=== PATIENT | male | born 1990 | race Two or more races ===

== ENCOUNTER 2021-05-01 21:15 | Emergency (ER) | payer OTHER ==
[~2021-05-01] VITALS: Ht 170.2 cm; Wt 104.3 kg
--- NOTE | 2021-05-01 21:32 | NUR ---
[id number]. WITNESSED TONIC CLONIC SEIZURE X 1 MIN. 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 LAST DRINK 1200. NO HISTORY OF SEIZURE. PT AWAKE A/OX3. TOLERATING R/A WELL WITH NO SOB AT 98%. CONNECTED PT TO POX AND MONITOR. SEIZURE SAFETY MEASURES IN PLACE.
--- NOTE | 2021-05-01 21:45 | NUR ---
LIVESTOCK YARD ATTENDANT AT PT'S BEDSIDE GLASSWARE VERIFIER L WRIST #18G; PATENT AND INTACT.
--- NOTE | 2021-05-01 21:46 | NUR ---
BLEACHER SULFITE PULP AT PT'S BEDSIDE
--- NOTE | 2021-05-01 21:51 | NUR ---
JEREMY BS 164; DR. ELLSWORTH AWARE
[2021-05-01] MEDS ORDERED: LORAZEPAM 1 MG TABLET ONE (21:52)
[2021-05-01 21:56] LABS: BASOPHILS # (AUTO) 0.1 K/uL (0.0-0.2); BASOPHILS % (AUTO) 0.5 % (0.0-2.0); HEMATOCRIT 43 % (39-51); HEMOGLOBIN 14.5 g/dL (13.5-17.5); LYMPHOCYTES # (AUTO) 1.2 K/uL (0.8-4.8); LYMPHOCYTES % (AUTO) 11.8 % (20.0-44.0); MEAN CORPUSCULAR HGB CONC 33 g/dl (31.0-36.0); MEAN CORPUSCULAR VOLUME 95 fL (80-96); MONOCYTES # (AUTO) 0.6 K/uL (0.1-1.30); MONOCYTES % (AUTO) 5.6 % (2.0-12.0); NEUTROPHILS # (AUTO) 8.5 K/uL (1.8-8.9); NEUTROPHILS % (AUTO) 82.1 % (43.0-81.0); PLATELET COUNT (AUTO) 133 K/uL (150-450); RED BLOOD CELL COUNT(AUTO) 4.55 MIL/uL (4.5-6.0); WHITE BLOOD COUNT (AUTO) 10.4 K/uL (4.3-11.0)
--- NOTE | 2021-05-01 21:56 | NUR ---
PT AWAKE AND FOLLOWS COMMANDS. PASSED SWALLOW EVAL WITH NO CHOKING.
[2021-05-01] MEDS: IV NS 0.9% 1,000 ML BAG IV ONE (21:57)
[2021-05-01] MEDS: LORAZEPAM 1 MG TABLET PO ONE (21:57)
--- NOTE | 2021-05-01 21:59 | NUR ---
PT TAKEN TO CT VIA [facility]
--- NOTE | 2021-05-01 22:37 | NUR ---
URINE COLLECTED AND SENT TO LAB
[2021-05-01 23:03] LABS: ALANINE AMINOTRANSFERASE 114 U/L (12-78); ALBUMIN 4.6 g/dL (3.4-5.0); ALCOHOL, BLOOD < 3 mg/dL (0-0); ALKALINE PHOSPHATASE 108 U/L (46-116); ASPARTATE AMINOTRANSFERASE 167 U/L (15-37); BILIRUBIN,DIRECT 0.4 mg/dL (0.0-0.2); BILIRUBIN,TOTAL 1.5 mg/dL (0.2-1.0); CALCIUM, SERUM 9.6 mg/dL (8.5-10.1); CARBON DIOXIDE 18 mmol/L (21-32); CHLORIDE 92 mmol/L (98-107); CREATININE 1.1 mg/dL (0.6-1.3); GLUCOSE 218 mg/dL (74-106); POTASSIUM 3.7 mmol/L (3.5-5.1); SODIUM SERUM 133 mmol/L (136-145); TOTAL PROTEIN, SERUM 9.2 g/dL (6.4-8.2); UREA NITROGEN, BLOOD 6 mg/dL (7-18)
--- NOTE | 2021-05-01 23:13 | NUR ---
XRAY AT PT'S BEDSIDE
--- NOTE | 2021-05-01 23:30 | NUR ---
URINE COLLECTED AND SENT TO LAB
[2021-05-02] MEDS ORDERED: PROPOFOL 20 ML IV ONE ×2 (00:14→00:42)
--- NOTE | 2021-05-02 00:16 | NUR ---
PT SIGNED CONSENT FORM FOR CLOSED REDUCTION OF THE RIGHT SHOULDER UNDER MODERATE SEDATION. VERBALIZED UNDERSTANDING
[2021-05-02] MEDS: PROPOFOL 200 MG/20 ML VIAL IV ONE (00:54)
--- NOTE | 2021-05-02 00:58 | NUR ---
DR. JEROME MILIAN, RT, RN, CORNETIST AT PT'S BEDSIDE FOR CLOSED REDUCTION TO RIGHT SHOULDER UNDER MODERATE SEDATION. 0025 PREPROCEDURE: PT VSS STABLE. ON 2L O2 SATTING AT 95%. 0554 - TOTAL OF PROPROFOL 360MG IVP ADMISTERED. PT TOLERATING WELL. 0055 - CLOSED REDUCTION TO RIGHT SHOULDER DONE. PT TOLERATING WELL. 8 - PT AWAKE. TOLERATING R/A WELL WITH OUT SOB. TIME OUT 005
--- NOTE | 2021-05-02 00:59 | NUR ---
LICENSED TAX CONSULTANT AT PT'S BEDSIDE
--- NOTE | 2021-05-02 01:59 | NUR ---
PT signed DC paper work. Written and verbal after care instructions given. Patient verbalizes understanding of instruction.
[2021-05-02 02:35] VITALS: BP 137/93
--- NOTE | 2021-05-02 02:35 | NUR ---
Patient discharged to home in stable condition. Written and verbal after care instructions given. Patient verbalizes understanding of instruction. PT ambulatory with a steady gait. IV removed. Catheter intact and site benign. Pressure and 4x4 applied to site. No bleeding noted.
== END 2021-05-02 02:38 | disposition home or self-care (01) ==
LOC: ER 21:26
DX: S43.014A Anterior dislocation of right humerus, initial encounter (principal); G40.409 Other generalized epilepsy and epileptic syndromes, not intractable, without status epilepticus; F10.239 Alcohol dependence with withdrawal, unspecified; F10.229 Alcohol dependence with intoxication, unspecified; X58.XXXA Exposure to other specified factors, initial encounter; Y93.89 Activity, other specified; Y92.89 Other specified places as the place of occurrence of the external cause; Y99.8 Other external cause status; Y90.0 Blood alcohol level of less than 20 mg/100 ml
CPT/HCPCS: 23650; 36415; 70450; 71045; 73030 ×2; 80048; 80076; 80307; 80320; 85025; 93005; 96360; 99152; 99285; J2704 ×2; J7030; G0480; G0500